=== PATIENT | female | born 1945 | race African-American/Black ===

== ENCOUNTER → 2017-02-08 | Outpatient (CLI) | payer OTHER ==
[~2017-02-08] MED LIST: ASPIRIN PO; LIPITOR PO; PLAVIX PO; PRILOSEC PO; ULTRAM PO
--- NOTE | ~2017-02-08 | MY29 ---
[facility] A Service of [facility] RADIOLOGY TEXT RESULTS PATIENT: NILE BEARD LOCATION: [facility] : 49 UNIT #: [id number] AGE: [address]: BARBARA GARCIA APRN SEX: F ORDER DR: [id number] [facility] [address] [place], [place] [address] [id number] O MR#: [id number] Acc #: [id number] NAME: NILE BEARD : 1945 SEX: F STUDY DATE/TIME: 02/08/2017 9:30 UNIT: [facility] ROOM: STUDY DESCRIPTION: MY QUETA SCREENING W/ CAD BILAT Attending Physician: Barbara Garcia Aprn Referring Physician: Barbara Garcia Aprn Ordering Physician: Barbara Garcia Aprn Primary Care Physician: Barbara Garcia Aprn MEDICAL IMAGING REPORT This report is preliminary unless electronic signature is present EXAM digital screening mammogram, 02/08/2017, [facility]. HISTORY 71-year-old woman; no risk elevation. Previous left breast biopsy. COMPARISON Comparison mammograms 10/08/2010, 10/16/2012. FINDINGS Digital imaging of each breast was completed utilizing a two-view examination of each breast in craniocaudal and mediolateral-oblique projections. Review and interpretation of digital mammograms include a second review in conjunction with FDA-approved CAD device. There is a normal parenchymal presentation bilaterally consistent with the patient's age. There are no breast masses imaged and no parenchymal asymmetry is visualized. There are no suspicious microcalcifications and I see no focal architectural disturbance. IMPRESSION Negative screening digital mammogram. One-year followup recommended. Patients over the age of 40 are entered into a reminder system with target due date for the next mammogram. A result letter will also be sent to the patient. BIRADS: 1 Negative Dictated by... Jose Chavez M.D. [facility] A Service [facility] RADIOLOGY TEXT RESULTS PATIENT: NILE BEARD LOCATION: [facility] : 49 UNIT #: [id number] AGE: [address]: BARBARA GARCIA APRN SEX: F ORDER DR: THIS IS AN ELECTRONICALLY VERIFIED REPORT Jose Chavez M.D. at 02/09/2017 10:31 AM Olegario TD: 02/08/2017 17:59 JOB #: [id number] MEDICAL IMAGING REPORT Page 1 of 1 COPY
== END | disposition home or self-care (01) ==
LOC: CWCC 02-04 10:15
DX: Z12.31 Encounter for screening mammogram for malignant neoplasm of breast (principal)
CPT/HCPCS: G0202